=== PATIENT | female | born 1950 ===

== ENCOUNTER 2021-09-12 09:41 | Day surgery (SDC) | payer OTHER ==
[~2021-09-12 09:41] MED LIST: SYNTHROID88 MCG PO
== END 2021-09-12 18:20 | disposition home or self-care (01) ==
LOC: CIR.AMB 09:41
PROVIDERS: ATTEND Obstetrics & Gynecology
DX: N84.0 Polyp of corpus uteri (principal); K82.8 Other specified diseases of gallbladder; Z20.822 Contact with and (suspected) exposure to COVID-19; Z88.0 Allergy status to penicillin; Z88.6 Allergy status to analgesic agent; J45.909 Unspecified asthma, uncomplicated; Z86.16 Personal history of COVID-19; Z87.891 Personal history of nicotine dependence; E66.9 Obesity, unspecified